=== PATIENT | female | born 1935 | race Caucasian/White ===

== ENCOUNTER → 2020-05-14 | Outpatient (CLI) | payer MEDICARE ==
--- NOTE | 2020-05-14 15:57 | RAD ---
DATE: 05/14/2020 3:38 PM EXAM: DIGITAL DIAGNOSTIC BILATERAL HISTORY: Left diffuse breast pain. COMPARISON: Bilateral mammogram of 12/24/2017 Bilateral full field craniocaudal and mediolateral oblique images were obtained using digital technique. This study was interpreted with the benefit of Computerized Aided Detection (CAD). FINDINGS: Breast Density: FATTY The Breast Parenchyma is primarily fatty replaced. Breast parenchyma level density A. No suspicious masses, microcalcifications or architectural distortion is present to suggest malignancy in either breast. The visualized axillae are unremarkable. IMPRESSION: No mammographic evidence of malignancy. BI-RADS CATEGORY: 1 NEGATIVE RECOMMENDED FOLLOW-UP: 12M 12 MONTH FOLLOW-UP Annual screening mammography is recommended, unless clinically indicated sooner based on symptoms or change in physical exam. PQRS compliance statement: Patient information was entered into a reminder system with a target due date for the next mammogram. Mammography is a sensitive method for finding small breast cancers, but it does not detect them all and is not a substitute for careful clinical examination. A negative mammogram does not negate a clinically suspicious finding and should not result in delay in biopsying a clinically suspicious abnormality. "Our facility is accredited by the [employer] Mammography Program."
== END ==
LOC: MAMMO 15:28
PROVIDERS: ATTEND Family Medicine
DX: N64.4 Mastodynia (principal)
CPT/HCPCS: 77066

== ENCOUNTER → 2021-06-01 | Outpatient (CLI) | payer MEDICARE ==
--- NOTE | 2021-06-01 16:50 | RAD ---
EXAMINATION: Right lower extremity duplex venous ultrasound. TECHNIQUE: DVT protocol. Multiple sonographic images with color Doppler and waveform interrogation we re performed of the right lower extremity veins with compression and augmentation maneuvers. INDICATION: 85 years Female, right leg pain Reason: RT CALF PAIN / Spl. Instructions: / History: . . FINDINGS: The right lower extremity veins from the groin to below the knee veins were examined with n ormal color-flow, compressibility and normal waveform demonstrated. IMPRESSION: No evidence of DVT in the right lower extremity. Electronically signed by: Foster Carvajal MD (06/01/2021 4:48 PM) [id number]
== END ==
LOC: US 15:39
PROVIDERS: ATTEND Family Medicine
DX: M79.661 Pain in right lower leg (principal)
CPT/HCPCS: 93971

== ENCOUNTER → 2021-08-04 | Outpatient (CLI) | payer MEDICARE ==
--- NOTE | 2021-08-04 10:28 | RAD ---
Arterial Brachial Index: Indication: Bilateral leg pain. Comparison: None. Procedure: Arterial pressures are measured in the arms and ankles. Findings: . Right ankle: 107 mm Hg. Right arm: 165 mm Hg. Left ankle: 114 mm Hg. Left arm: 154 mm Hg. Right leg LANNY: 0.65. Left leg LANNY: 0.69. Impression: Normal LANNY. Result Interpretation Recommendation >1.4 Advanced Wall Calcification Vascular Specialist Assessment 1.0 - 1.4 Normal None 0.9 - 1.0 Acceptable None 0.8 - 0.9 Mild Arterial Disease Risk Factor Review and Treatment 0.5 - 0.8 Moderate Arterial Disease Vascular Specialist Assessment < 0.5 Severe Arterial Disease Vascular Specialist Assessment The findings, history suggests this patient may benefit from conventional angiography and possible at tempted endovascular reconstruction by an endovascular specialist or possibly surgery. If desired, we would be happy to see them in our IR clinic. Referral can be made by faxing written referral to [phone]. Electronically signed by: Rex Miranda MD (08/04/2021 10:25 AM) [id number]
== END ==
LOC: US 08:31
PROVIDERS: ATTEND Family Medicine
DX: M79.661 Pain in right lower leg (principal); M79.662 Pain in left lower leg
CPT/HCPCS: 93923